=== PATIENT | male | born 1985 | race Caucasian/White ===

== ENCOUNTER 2020-08-01 23:12 | Emergency (ER) | payer OTHER ==
[~2020-08-01] VITALS: Ht 172.7 cm; Wt 113.4 kg
[~2020-08-01 23:12] MED LIST: ACETAMINOPHEN-1 EAC1 PO; BENTYL 10 MG CA10 MG PO; BENTYL10 MG PO; CIPRO250 M1 PO; CITRATE OF MAG296 ML PO; CLEOCIN HCL150 MG PO; COLACE100 MG PO; FLAGYL500 MG PO; FLEXERIL PO; IBUPROFEN 600600 M1 PO; NAPROSYN500 MG PO; NO HOME MEDS; NORCO 5-325 TA1 EACH PO; NORFLEX100 MG PO; ONDANSETRON HCL4 M2 PO; PERCOCET 5-3251 EACH PO; PHENERGAN 25 MG25 M1 PO; PREDNISONE 10 M10 MG PO; PREDNISONE 20 M20 MG PO; PRILOSEC 20 MG20 MG PO; PROPRANOLOL 1010 M1 PO; SERTRALINE HCL50 MG PO; ULTRAM; VITAMIN D3400 UNIT PO; ZOFRAN ODT4 MG PO
[2020-08-01 23:14] VITALS: BP 116/76
[2020-08-01] MEDS ORDERED: BACITRACIN3.5 GM TOP (23:47)
[2020-08-01] MEDS ORDERED: NAPROSYN500 MG PO (23:47)
== END 2020-08-02 00:10 | disposition home or self-care (01) ==
LOC: ER 23:12
DX: S61.210A Laceration without foreign body of right index finger without damage to nail, initial encounter (principal); F17.210 Nicotine dependence, cigarettes, uncomplicated; Z88.5 Allergy status to narcotic agent; W01.198A Fall on same level from slipping, tripping and stumbling with subsequent striking against other object, initial encounter; Y93.89 Activity, other specified; Y92.89 Other specified places as the place of occurrence of the external cause; Y99.8 Other external cause status

== ENCOUNTER 2020-08-02 09:03 | Emergency (ER) | payer OTHER ==
[~2020-08-02] VITALS: Ht 180.3 cm; Wt 116.1 kg
[~2020-08-02 09:03] MED LIST changes: +BACITRACIN3.5 GM TOP
[2020-08-02 10:35] VITALS: BP 134/76
== END 2020-08-02 10:35 | disposition home or self-care (01) ==
LOC: ER 09:03
DX: S61.214D Laceration without foreign body of right ring finger without damage to nail, subsequent encounter (principal); F32.9 Major depressive disorder, single episode, unspecified; F17.210 Nicotine dependence, cigarettes, uncomplicated; Z98.890 Other specified postprocedural states; Z79.2 Long term (current) use of antibiotics; Z79.899 Other long term (current) drug therapy; Z88.6 Allergy status to analgesic agent; X58.XXXD Exposure to other specified factors, subsequent encounter

== ENCOUNTER 2020-08-15 08:33 | Emergency (ER) | payer OTHER ==
[~2020-08-15] VITALS: Ht 180.3 cm; Wt 115.7 kg
[2020-08-15 08:35] VITALS: BP 148/91
== END 2020-08-15 09:03 | disposition home or self-care (01) ==
LOC: ER 08:33
DX: S61.210D Laceration without foreign body of right index finger without damage to nail, subsequent encounter (principal); F17.210 Nicotine dependence, cigarettes, uncomplicated; Z88.8 Allergy status to other drugs, medicaments and biological substances; X58.XXXD Exposure to other specified factors, subsequent encounter